=== PATIENT | male | born 1970 | race Caucasian/White ===

== ENCOUNTER 2023-05-30 12:49 | Day surgery (SDC) | payer OTHER, SELFPAY ==
[2023-05-30] VITALS (23 sets, daily range): BP systolic 108–137; BP diastolic 69–93; PULSE 80–96; RESP 14–16; TEMP 36.8–38.1; O2SAT 94–100; BMI 22.9
--- NOTE | 2023-05-30 13:00 | CRLHL7_ITS ---
For Patients: As a result of the Century Cures Act, medical imaging exams and procedure reports are released immediately into your electronic medical record. You may view this report before your referring provider. If you have questions, please contact your health care provider. INDICATION: Right lower quadrant pain.. TECHNIQUE: CT abdomen and pelvis acquired with 80 cc Isovue 370 IV contrast. COMPARISON: None. FINDINGS: Lower chest: Unremarkable. Liver: Subcentimeter hypodensity at the right hepatic as well as the left pedicle adjacent to the gallbladder, too small to characterize. Otherwise, normal attenuation of the liver. No suspicious masses. Gallbladder and bile ducts: Unremarkable. No stones or inflammation. No biliary dilatation. Pancreas: Unremarkable. No mass or inflammation. Spleen: Unremarkable. Normal in size. No masses. Adrenal glands: Unremarkable. No nodules. Kidneys: Unremarkable. No suspicious masses, stones, or hydronephrosis. Right superior pole renal cyst measuring up to 2.3 centimeters in diameter. GI tract: Mild thickening in the distal sigmoid colon, likely reactive. Thickening in the ascending colon and cecum as well as the terminal ileum also likely reactive. Appendicoliths is identified at the base of the appendix measuring approximately 7 millimeters. The appendix is dilated measuring up to 13 millimeters in diameter with peripheral surrounding fat stranding. No focal drainable fluid collections. Adjacent peritoneal thickening and enhancement is noted. No bowel obstruction. Vasculature: Abdominal aorta is normal in caliber. Mesenteric arteries are patent. Lymph nodes: No lymphadenopathy. Peritoneum/Abdominal Wall: Small free fluid within the pelvis, likely reactive. Right lower quadrant fat stranding and trace fluid as well as peritoneal thickening. Pelvis: Bladder and prostate are unremarkable. Bones: Unremarkable for age. IMPRESSION: Acute uncomplicated appendicitis. Appendicolith is noted at the base of the appendix. Please note that all CT scans at this facility use dose modulation, iterative reconstruction, and/or weight-based dosing when appropriate to reduce radiation dose to as low as reasonably achievable. Dictated by Levar Mobley MD @ 05/30/2023 2:49:36 PM (Electronically Signed)
--- NOTE | 2023-05-30 13:05 | ED_ITS ---
HPI - General Adult General Date Seen: 05/30/23 Chief complaint: Abdominal Pain Stated complaint: Lower R side abdominal pain, fever Time Seen by Provider: 05/30/23 12:53 Source: patient Mode of arrival: ambulatory Limitations: no limitations History of Present Illness HPI narrative: Patient is a 53-year-old generally healthy man who presents for evaluation of abdominal pain. He says on Tuesday he was seen in urgent care for abrupt onset of vomiting and diarrhea associated with some central lower abdominal pain. They advised diffuse not feeling better in 24 hours he should be seen again but yesterday he says he was feeling quite a bit better and thought he might be able to go to work today. However, today abdominal pain is worse than his moved to the right lower quadrant and is associated with perceived fever, chills and body aches. The vomiting and diarrhea have resolved, he has not had further nausea today but has not had an appetite. He has been taking activated charcoal as a treatment for possible food poisoning as 6 hours before onset of symptoms he had eaten some fermented pickles that he is making at home. Urine has been dark but no dysuria or obvious hematuria. General health is good, no previous abdominal surgeries. Related Data Home Medications Medication Instructions Recorded Confirmed loratadine 10 mg tablet (Claritin) 10 mg PO DAILY 05/30/23 05/30/23 Allergies Allergy/AdvReac Type Severity Reaction Status Date / Time No Known Drug Allergies Allergy Verified 05/30/23 14:31 Review of Systems Status of ROS: Reports: 10 or more systems reviewed and unremarkable except as noted in History and below [facility] Medical History (Updated 05/30/23 @ 16:13 by Sofía Lechuga MD) Seasonal allergies ?J30.2 - Other seasonal allergic rhinitis (ICD-10) Surgical History (Updated 05/30/23 @ 16:13 by Sofía Lechuga MD) S/P wisdom tooth extraction ?Z98.818 - Other dental procedure status (ICD-10) Social History (Updated 05/30/23 @ 16:12 by Sofía Lechuga MD) Narrative: He does not smoke. he drinks alcohol occasionally. 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 In general, an alert, well-appearing patient. Head: Normocephalic, atraumatic. Eyes: Pupils are equal reactive. Extraocular movements are full. Conjunctivae are normal. ENT: Mucous membranes are moist. Throat is normal. Neck: Supple without lymphadenopathy. Heart: Regular rate and rhythm. No murmur or rub. Lungs: Clear bilaterally. No increased work of breathing, crackles or wheezes. Abdomen: Soft and nondistended. Tenderness in the suprapubic and right lower quadrant. Some voluntary guarding, no rigidity. Remainder the abdomen is nontender. No CVA tenderness. Extremities: Well perfused. No edema. No calf tenderness. Pulses intact. Neurologic: Patient is alert and oriented to person and place. Speech is fluent. Face is symmetric. Moves all extremities equally. Affect: Normal. Skin: Warm and dry. Well perfused. Const: Vital Signs, click to edit/add: Vital Signs - 24 hr 05/30/23 12:54 05/30/23 12:58 05/30/23 12:59 Temperature 100.6 F H Pulse Rate 91 88 Pulse Rate [Pulse Oximeter] 91 Respiratory Rate 16 Blood Pressure 117/79 Blood Pressure [Le ft Upper Arm] 117/79 Pulse Oximetry 99 97 98 Oxygen Delivery Me thod Room Air 05/30/23 13:00 05/30/23 13:01 Temperature Pulse Rate 91 93 Pulse Rate [Pulse Oximeter] Respiratory Rate Blood Pressure 110/74 Blood Pressure [Le ft Upper Arm] Pulse Oximetry 98 98 Oxygen Delivery Me thod Course Course Hospital Course: Patient declines the need for anything for pain right now. Will give a 1000 mL of normal saline IV, CT scan to look for diverticulitis, colitis, appendicitis or other acute non gastroenteritis causes for his symptoms. Labs pending. [place] [address], elevated CRP at 16.7. LFTs are normal, lipase is 32. Urinalysis pending. CT scan of the abdomen by my review showed an appendicolith and dilated appendix as well as inflammatory changes in the right lower quadrant. Final radiology read is as follows:IMPRESSION: Acute uncomplicated appendicitis. Appendicolith is noted at the base of the appendix. Case is discussed with Dr. Lechuga, general surgery. She will review the CT scan and determine a plan. Patient has been hemodynamically stable without further complaints while here in the emergency department. Vital Signs Vital signs: Initial Vital Signs Temperature 100.6 F H 05/30/23 12:54 Temperature Source Temporal Artery Scan 05/30/23 12:54 Pulse Rate 91 05/30/23 12:54 Pulse Rhythm Regular 05/30/23 12:54 Pulse Strength 3+ Normal 05/30/23 12:54 Respiratory Rate 16 05/30/23 12:54 Blood Pressure 117/79 05/30/23 12:54 Blood Pressure Mean 91 05/30/23 12:54 Blood Pressure Position Supine 05/30/23 12:54 Pulse Oximetry 99 05/30/23 12:54 Oxygen Delivery Method Room Air 05/30/23 12:54 Vital Signs Temperature 100.6 F H 05/30/23 12:54 Pulse Rate 91 05/30/23 12:54 Respiratory Rate 16 05/30/23 12:54 Blood Pressure 117/79 05/30/23 12:54 Pulse Oximetry 99 05/30/23 12:54 Oxygen Delivery Method Room Air 05/30/23 12:54 Temperature 100.6 F H 05/30/23 12:54 Pulse Rate 93 05/30/23 13:01 Respiratory Rate 16 05/30/23 12:54 Blood Pressure 110/74 05/30/23 13:01 Pulse Oximetry 98 05/30/23 13:01 Oxygen Delivery Method Room Air 05/30/23 12:54 Medical Decision Making Lab Data Labs: Lab Results 05/30/23 05/30/23 Range/Units 13:01 13:19 WBC 18.57 H (4.50-11.00) K/uL RBC 4.77 (4.30-5.90) m/uL Hgb 15.3 (13.5-17.5) gm/dL Hct 43.1 (37.0-53.0) % MCV 90 (80-100) fL MCH 32 (26-34) pg MCHC 36 (32-36) gm/dL RDW Coeff of Selvin 11.8 (11.5-15.5) % Plt Count 221 (140-440) K/uL Neut % (Auto) 85.6 H (42.0-72.0) % Lymph % (Auto) 4.6 L (20-44) % Tyler % (Auto) 9.4 (0.0-11.0) % Eos % (Auto) 0.1 (0.0-7.0) % Baso % (Auto) 0.1 (0.0-3.0) % Neut # (Auto) 15.90 H (1.7-7.0) K/uL Lymph # (Auto) 0.90 (0.90-2.90) K/uL Tyler # (Auto) 1.70 H (0.00-0.90) K/UL Eos # (Auto) 0.00 (0.00-0.50) K/uL Baso # (Auto) 0.00 (0.00-0.30) K/uL Abs Immat Gran (auto) 0.00 (0.00-0.30) K/uL Imm/Tot Granulo (auto) 0.2 % Sodium 135 (135-149) mmol/L Potassium 3.7 (3.6-5.1) mmol/L Chloride 101 (96-114) mmol/L Carbon Dioxide 26 (20-32) mmol/L BUN 9 (7-30) mg/dL Creatinine 0.6 (0.5-1.5) mg/dL Estimated Creat Clear 153.26 Estimated GFR 117 ml/min Glucose 118 H (60-115) mg/dL Calcium 8.8 (8.4-10.6) mg/dL Total Bilirubin 1.8 H (0.1-1.5) mg/dL Direct Bilirubin 0.1 (0.0-0.5) mg/dL AST 23 (12-35) U/L ALT 27 (4-50) U/L Alkaline Phosphatase 56 (40-150) U/L C-Reactive Protein 16.7 H (0.5-1.0) mg/dL Total Protein 7.1 (6.0-8.3) g/dL Albumin 3.9 (3.3-5.0) g/dL Lipase 32 (23-300) U/L Urine Color Yellow (Yellow) Urine Appearance Slightly Cloudy A (Clear) Urine pH 8.5 (5.0-8.5) Ur Specific [place] 1.015 (1.000-1.030) Urine Protein Negative (Negative) Urine Glucose (UA) Negative (Negative) Urine Ketones 3+ A (Negative) Urine Blood 1+ A (Negative) Urine Nitrite Negative (Negative) Urine Bilirubin Negative (Negative) Urine Urobilinogen 1.0 (0.2-1.0) Ur Leukocyte Esterase Negative (Negative) Urine RBC 2-5 A (0-2) Urine WBC 2-5 (0-5) Ur Squamous Epith Cells Few (None-Few) Urine Bacteria None (None) Discharge Plan Discharge Prescriptions: No Action loratadine [Claritin] 10 mg tablet 10 mg PO DAILY
--- OUTSIDE RECORDS SUMMARY | 2023-05-30 13:15 | XMS_ITS | Patient Health Record ---
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 Name Role Phone Valeriy Gonzales Primary Care Provider Robin Rigginsw Unavailable [phone] ALLERGIES No Known Allergies REASON FOR REFERRAL No Information MEDICATIONS Medication SIG (Take, Route, Frequency, Duration) Notes Start Date End Date Status Ibuprofen 200 MG 4 tab(s) orally prn Not-Taking diphenhydrAMINE HCl 50 MG 1 cap(s) orally at bedtime for insomnia for 30 days 09/04/2019 Not-Taking Naproxen Sodium 220 MG 1 tab bid prn Active Medrol 4 MG as directed, 6 tabs day 1, then reduce by 1 tab daily until gone as directed 01/06/2023 Active Cephalexin 500 MG 1 cap(s) orally 4 times a day 07/01/2017 Not-Taking Triamcinolone Acetonide 0.1 % 1 sung applied topically TID PRN for hemorrhoid flares 07/29/2008 Not-Taking Benadryl Allergy 25 MG 2 cap(s) orally at bedtime for sleep Active Sildenafil Citrate 20 MG 1 tab(s) orally as directed PRN ( order number is [id number] 10/14/2017 Not-Taking predniSONE 20 MG 1 tab(s) orally once a day for 5 days 07/15/2020 Not-Taking traZODone HCl 50 MG 1/2-3 tab(s) orally at bedtime for insomnia for 30 day(s) 09/04/2019 Not-Taking Cialis 10 MG 1 tab(s) orally once weekly adcirca generic is fine 01/22/2019 Not-Taking Melatonin 3 MG 1 cap(s) orally once a day (at bedtime) Active Claritin 10 MG 1 tab(s) orally prn Active Cialis 20 MG 1 tab(s) orally once a day for ( tadalafil ) order # [id number] 10/17/2017 Not-Taking SOCIAL HISTORY Tobacco Use: Social History Observation Description Date Details (start date - stop date) Former Smoker NA - NA Sex Assigned At : Social History Observation Description Sex Assigned At Unknown Tobacco Status Question Answer Notes I am: former smoker How long has it been since you last smoked? > 10 years PROBLEMS Problem Type ICD Code Onset Dates Problem Status W/U Status Risk SNOMED Code Notes Problem Erectile dysfunction, unspecified erectile dysfunction type (N52.9) Active confirmed 557099747 Problem Insomnia, unspecified type (G47.00) Active confirmed 651073889 Encounters Encounter Location Date Provider Diagnosis [facility] [address] [place], [place] [id number] 01/06/2023 Ryder Riggins Low back pain at multiple sites M54.50 ASSESSMENTS Encounter Date Diagnosis Assessment Notes Treatment Notes Treatment Clinical Notes 01/06/2023 Low back pain at multiple sites (ICD-10 - M54.50) Etiology discussed. Treatment options and anticipated course reviewed. Stretching exercises given. Role of pain medication and physical rehabilitation reviewed. Warned to call back if worsens or not improved. Pt will start with home exercises, will consider PT versus referral to [facility]. Discussed the utility of imaging will not image at this time in favor of conservative treatments., Low Back Pain: Exercises material was printed PLAN OF TREATMENT No Information Insurance Providers Payer Name Payer Address Payer Phone Subscriber Number Group Number Insured Name Patient Relationship to Insured Coverage Start Date Coverage End Date [employer] [address] [facility] VALERIA Rubio [phone] [id number] Mehdi Gaitan Self - patient is the insured 1 Deevn Ferrara [address] [place] [address] [id number] Mehdi Gaitan Self - patient is the insured 6 MEDICAL (GENERAL) HISTORY Medical History History ICD Code Occipital neuritis Surgical History Surgery Date(Month/Year) [place] tooth extractions 1989 Hospitalization History Reason Date(Month/Year)
[2023-05-30 13:25] LABS: Basophils Percent Auto 0.1 % (0.0-3.0); Eosinophils Percent Auto 0.1 % (0.0-7.0); Hematocrit 43.1 % (37.0-53.0); Hemoglobin* 15.3 gm/dL (13.5-17.5); Immature Granulocytes Pct Auto 0.2 %; Lymphocytes Percent Auto 4.6 % (20-44); Mean Corpuscular HGB Conc 36 gm/dL (32-36); Mean Corpuscular Hemoglobin 32 pg (26-34); Mean Corpuscular Volume 90 fL (80-100); Monocytes Percent Auto 9.4 % (0.0-11.0); Neutrophils Percent Auto 85.6 % (42.0-72.0); Platelet Count* 221 K/uL (140-440); RDW Coefficient of Variation % 11.8 % (11.5-15.5); Red Blood Count 4.77 m/uL (4.30-5.90); White Blood Count* 18.57 K/uL (4.50-11.00)
[2023-05-30 13:35] LABS: Slide Review Reflex No
[2023-05-30 13:38] LABS: Albumin* 3.9 g/dL (3.3-5.0); Chloride* 101 mmol/L (96-114)
[2023-05-30 13:39] LABS: Potassium* 3.7 mmol/L (3.6-5.1); Sodium* 135 mmol/L (135-149)
[2023-05-30 13:41] LABS: Creatinine* 0.6 mg/dL (0.5-1.5); Est. Creatinine Clearance* 153.26; Estimated Glomerular Filt Rate 117 ml/min
[2023-05-30 13:42] LABS: Alanine Aminotransferase* 27 U/L (4-50); Alkaline Phosphatase* 56 U/L (40-150); Aspartate Amino Transferase* 23 U/L (12-35); Bilirubin Direct* 0.1 mg/dL (0.0-0.5); Bilirubin Total* 1.8 mg/dL (0.1-1.5); Blood Urea Nitrogen* 9 mg/dL (7-30); Calcium* 8.8 mg/dL (8.4-10.6); Carbon Dioxide* 26 mmol/L (20-32); Glucose* 118 mg/dL (60-115); Lipase* 32 U/L (23-300); Total Protein* 7.1 g/dL (6.0-8.3)
[2023-05-30 13:56] LABS: C Reactive Protein* 16.7 mg/dL (0.5-1.0)
[2023-05-30 15:19] LABS: Appearance Urine Slightly Cloudy (Clear); Bilirubin Urine Negative (Negative); Blood Urine 1+ (Negative); Color Urine Yellow (Yellow); Glucose Urine Negative (Negative); Ketones Urine 3+ (Negative); Leukocyte Esterase Urine Negative (Negative); Nitrite Urine Negative (Negative); Protein Urine Negative (Negative); Specific Gravity Urine 1.015 (1.000-1.030); pH Urine 8.5 (5.0-8.5)
--- NOTE | 2023-05-30 15:40 | PM.GSHP ---
History of Present Illness History of Present Illness Date Seen: 05/30/23 Chief complaint: Lower R side abdominal pain, fever Narrative: Mehdi Gaitan is a 53 year old male Who presented to the emergency department today with several days of abdominal pain. He states that 11:00 p.m. on Tuesday he went to the bathroom to have a bowel movement and unexpectedly had diarrhea with this he had nausea. Overnight he vomited 7 times. The pain was so severe that he could not sleep. The pain at that time was located across his lower abdomen. He went to urgent care the next day. They did some labs but could not check a CT scan and encouraged him to go to the emergency department though since he thought it was food poisoning, he did not do so. Yesterday he felt better in the evening and went to bed however this morning when he woke up it was progressively worse and he could not go into work. He came in to be seen. He has had a low-grade fever of up to 99 though he has had a temperature of 100.6? in the emergency department. He last ate this morning. He had blueberries. Nothing necessarily makes the pain worse or better though he feels as though sleeping helps. He has never had anything like this before. He has never had a colonoscopy or any other colon cancer screening modality. He has no chest pain or shortness of breath [facility] Medical History (Updated 05/30/23 @ 16:13 by Sofía Lechuga MD) Seasonal allergies ?J30.2 - Other seasonal allergic rhinitis (ICD-10) Surgical History (Updated 05/30/23 @ 16:13 by Sofía Lechuga MD) S/P wisdom tooth extraction ?Z98.818 - Other dental procedure status (ICD-10) Social History (Updated 05/30/23 @ 16:12 by Sofía Lechuga MD) Narrative: He does not smoke. he drinks alcohol occasionally. 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 Smoking Status: Never smoker Do you use any of these nicotine containing products: None Second hand tobacco smoke exposure: No How often do you have a drink containing alcohol: 2-3 times a week AUDIT-C Alcohol total score: 3 Non-prescribed substance use: denies use service: No Meds Home Medications and Allergies Home Medications Medication Instructions Recorded Confirmed Type loratadine 10 mg tablet (Claritin) 10 mg PO DAILY 05/30/23 05/30/23 History Allergies Allergy/AdvReac Type Severity Reaction Status Date / Time No Known Drug Allergies Allergy Verified 05/30/23 14:31 Exam Narrative: Exam Narrative: General appearance: Alert, cooperative, and in no distress Eyes: PERRLA, eye lids clear, and sclera white HENT Head: Normocephalic Ears: External ears normal Pulmonary: Clear to auscultation bilaterally Cardiovascular Heart: Regular rate and rhythm Extremities: warm and well perfused Gastrointestinal Abdominal: No scars. No hernias. Abdomen is soft. He has a fullness on the right. No guarding. Mild tenderness with palpation on the right but he does have rebound. Musculoskeletal: Extremities: Upper: Both upper extremities have normal joint range of motion and intact strength. Lower: Both lower extremities have normal joint range of motion and intact strength. Skin: Normal skin color, texture, and turgor. Neurologic: No focal deficits Psychiatric: Alert, oriented, cooperative, normal affect. Const: Vital Signs, click to edit/add: Vital Signs - 24 hr 05/30/23 12:54 05/30/23 12:58 05/30/23 12:59 Temperature 100.6 F H Pulse Rate 91 88 Pulse Rate [Pulse Oximeter] 91 Respiratory Rate 16 Blood Pressure 117/79 Blood Pressure [Le ft Upper Arm] 117/79 Pulse Oximetry 99 97 98 Oxygen Delivery Me thod Room Air 05/30/23 13:00 05/30/23 13:01 Temperature Pulse Rate 91 93 Pulse Rate [Pulse Oximeter] Respiratory Rate Blood Pressure 110/74 Blood Pressure [Le ft Upper Arm] Pulse Oximetry 98 98 Oxygen Delivery Me thod Results Results Labs: White blood cell count is 18. Total bili is 1.8 though direct bilirubin is normal. CRP is 16. Electrolytes within normal limits. Abdomen CT scan report/results: report reviewed and image reviewed Additional studies: CT scan of the abdomen pelvis done today: INDICATION: Right lower quadrant pain.. TECHNIQUE: CT abdomen and pelvis acquired with 80 cc Isovue 370 IV contrast. COMPARISON: None. FINDINGS: Lower chest: Unremarkable. Liver: Subcentimeter hypodensity at the right hepatic as well as the left pedicle adjacent to the gallbladder, too small to characterize. Otherwise, normal attenuation of the liver. No suspicious masses. Gallbladder and bile ducts: Unremarkable. No stones or inflammation. No biliary dilatation. Pancreas: Unremarkable. No mass or inflammation. Spleen: Unremarkable. Normal in size. No masses. Adrenal glands: Unremarkable. No nodules. Kidneys: Unremarkable. No suspicious masses, stones, or hydronephrosis. Right superior pole renal cyst measuring up to 2.3 centimeters in diameter. GI tract: Mild thickening in the distal sigmoid colon, likely reactive. Thickening in the ascending colon and cecum as well as the terminal ileum also likely reactive. Appendicoliths is identified at the base of the appendix measuring approximately 7 millimeters. The appendix is dilated measuring up to 13 millimeters in diameter with peripheral surrounding fat stranding. No focal drainable fluid collections. Adjacent peritoneal thickening and enhancement is noted. No bowel obstruction. Vasculature: Abdominal aorta is normal in caliber. Mesenteric arteries are patent. Lymph nodes: No lymphadenopathy. Peritoneum/Abdominal Wall: Small free fluid within the pelvis, likely reactive. Right lower quadrant fat stranding and trace fluid as well as peritoneal thickening. Pelvis: Bladder and prostate are unremarkable. Bones: Unremarkable for age. IMPRESSION: Acute uncomplicated appendicitis. Appendicolith is noted at the base of the appendix. Please note that all CT scans at this facility use dose modulation, iterative reconstruction, and/or weight-based dosing when appropriate to reduce radiation dose to as low as reasonably achievable. Dictated by Levar Mobley MD @ 05/30/2023 2:49:36 PM Assessment and Plan Assessment and plan (1) Acute appendicitis: Status: Acute Plan We discussed that appendectomy is the preferred treatment for this. This can most often be done laparoscopically. We discussed risks and benefits of the procedure including but not limited to bleeding, need for conversion to open, risk of injury to other structures, need for possible bowel resection, and abscess formation. The patient understands that the risk of abscess is higher if the appendix is perforated. For that reason, we generally keep patient is in the hospital on IV antibiotics until vital signs and white blood cell count had normalized. We also discussed recovery including 2 weeks of lifting restrictions.
[2023-05-30 15:46] LABS: Squamous Epithelial Cell Urine Few (None-Few)
[2023-05-30] MEDS: LACTATED RINGERS 1000 ML 1,000 ML 100 ML IV ×2 (16:18→20:29)
[2023-05-30] MEDS: PIPERACILLIN/TAZOBACTAM 3.375 GM INJ IVPB (16:25)
[2023-05-30] MEDS: BUPIVACAINE 0.25% 30 ML INJECTION (16:46)
--- NOTE | 2023-05-30 18:06 | P.ANES_ITS ---
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
--- NOTE | 2023-05-30 18:15 | PM.GSPRC ---
Operative Note Pre-op diagnosis: Acute appendicitis Post-op diagnosis: Acute appendicitis with perforation Type of Procedure: Laparoscopic appendectomy Indications: The patient is a 53-year-old male who presented to the emergency department with 3 days of lower abdominal pain and fevers. He initially thought this was related to food poisoning however when his symptoms worsened yesterday he decided to come into the emergency department. Workup revealed a white blood cell count of [address] showing appendicitis with inflammation of the sigmoid, cecum and terminal ileum. I recommended appendectomy and he agreed to proceed. Procedure Description: After discussing the risks and benefits of the procedure, the patient signed informed consent.? The operative site was marked and the patient was brought to the operating room and placed on the operating table in supine position.? Care was taken to pad the patient's pressure points.?? The patient was then intubated by anesthesia.?? The operative site was then prepped and draped in the usual sterile fashion.? A time-out was then performed. Entrance to the abdomen was obtained via a 5 mm optical trocar in the left upper quadrant. The abdomen was insufflated and briefly surveyed for any signs of injury. There were none. A 12 mm port was placed inferior to the umbilicus as well as a 5 mm port in the left lower quadrant. Both were done under direct vision. The patient was then placed in Trendelenburg position with the right side up. The small bowel was noted to be adherent to the right lower abdominal wall. Using gentle blunt dissection, I was able to dissect this down from the pelvic wall and there was a large amount of feculent fluid noted. Quickly I suctioned this from the abdomen before it could spill further. Small chunks of fecal material were removed from the abdomen. The terminal ileum and cecum were noted to be quite inflamed, however, by retracting the ileal fat pad I was able to view the appendix. This was noted to be necrotic. This was densely adherent to the retroperitoneum. Carefully I teased the appendix away from the alysha sigmoid fat to which it was adherent in the pelvis and was able to pull this upward. Using LigaSure, I divided the mesoappendix. The portion of the appendix where the perforation was was densely adherent to the retroperitoneum. I was able to visualize the appendiceal base. I created a mesenteric window using a Saritha dissector. Through this I passed a purple load Endo-LOGAN stapler. Because of the location of the perforation, I wanted to ensure that I stapled down on the cecum. To facilitate this, I removed the stapler and used a scissor to dissect the lateral peritoneal attachments of the cecum. Once this was done I was able to pass the stapler through the mesenteric window and divided the appendix just proximal on the cecum. The staple line was inspected for bleeding. There was none. I then was able to use the Harmonic to divide the remaining mesoappendix attaching appendix to the retroperitoneum with care to stay on the appendix itself. I then removed the appendix from the abdomen using an Endo-Catch bag. I examined the area where the appendix had been. There was a small amount of bleeding that had occurred during the procedure, however this was suctioned and there was no further bleeding noted. A small amount of clear fluid was present in the pelvis. This was suctioned as well. I examined the abdomen to ensure there was no further purulence or fecal material. There was none. Because of the perforation of enteric contents I elected to place a drain in the appendiceal bed. A 5 mm port was placed in the right lower quadrant under direct vision. Through this a 19 Yoruba Justus channel drain was passed. This was placed along the appendiceal bed and with its tip in the pelvis. This was then sutured in place. The ports were then removed and the abdomen was desufflated. The umbilical port site fascia was closed with 0 Vicryl. The skin was then closed with absorbable subcuticular suture. A small amount of oozing from the skin around the drain site was noted. I did not want to use cautery for fear of damaging the drain. The bleeding was controlled with a [id number] stitch using Monocryl and a piece of Surgicel was place around the drain. Sterile dressings were then applied. Instrument sponge and needle counts were correct at the end of the case. The patient was then woken and transported to the PACU in stable condition. ? The patient tolerated the procedure well. Findings: Gangrenous appendicitis with walled-off perforation. Anesthesia: GETA Surgeon: Sofía Lechuga MD Estimated blood loss (mL): 15 Specimen: Appendix Condition: stable Disposition: PACU
[2023-05-30] MEDS: LACTATED RINGERS 1000 ML 1,000 ML 35 ML IV (18:24)
--- NOTE | 2023-05-30 19:33 | PC.NURSE ---
up to floor at 1830, at bedside, patient alert and oriented x4, denies N/V and rates pain at 2/10. Patient has bilateral SCD's, CATHI drain is patent. 3 lap sites covered in steri strips. VSS, patient on RA and tolerating fluids. LS clear, ice pack to op site.
[2023-05-30] MEDS: HYDROmorphone 0.5 mg/0.5 ml inj IVP (20:28)
[2023-05-30] MEDS: HYDROCODONE-ACETAMIN 5-325 MG 1 TAB PO (22:08)
[2023-05-30] MEDS: PIPERACILLIN/TAZOBACTAM 3.375 GM in 0.9 % SODIUM CHLORIDE Mini-bag 100 ML IVPB (23:17)
[2023-05-31] VITALS: BP 112/69; PULSE 80; RESP 16; TEMP 37.2; O2SAT 96
[2023-05-31] MEDS: HYDROmorphone 0.5 mg/0.5 ml inj IVP ×4 (00:14→10:38)
[2023-05-31 02:00] VITALS: BP 112/69; PULSE 84; RESP 16; TEMP 36.3; O2SAT 96
[2023-05-31] MEDS: LACTATED RINGERS 1000 ML 1,000 ML 100 ML IV (04:34)
[2023-05-31] MEDS: PIPERACILLIN/TAZOBACTAM 3.375 GM in 0.9 % SODIUM CHLORIDE Mini-bag 100 ML IVPB (04:38)
[2023-05-31 07:00] VITALS: BP 116/76; PULSE 64; RESP 16; TEMP 36.7; O2SAT 99
[2023-05-31 07:02] LABS: Basophils Percent Auto 0.1 % (0.0-3.0); Hemoglobin* 13.3 gm/dL (13.5-17.5); Immature Granulocytes Pct Auto 0.3 %; Lymphocytes Percent Auto 5.3 % (20-44); Mean Corpuscular HGB Conc 35 gm/dL (32-36); Mean Corpuscular Hemoglobin 33 pg (26-34); Mean Corpuscular Volume 93 fL (80-100); Neutrophils Percent Auto 85.3 % (42.0-72.0); Platelet Count* 232 K/uL (140-440); RDW Coefficient of Variation % 11.9 % (11.5-15.5); Red Blood Count 4.09 m/uL (4.30-5.90); White Blood Count* 14.67 K/uL (4.50-11.00)
--- NOTE | 2023-05-31 07:12 | PC.NURSE ---
Shift note: Pt has been well tonight. Complained of intermittent pain which was managed with PRN medications as ordered. Pt had hyperactive bowel sound, asked to walk around and confirmed he passed gas 3x and that reduced the pain level. Alert and oriented. Tolerated regular diet very well without any abdominal symptoms. Pt's sleep was interrupted with intermittent pain. Vitally stable.
[2023-05-31 07:23] LABS: Chloride* 103 mmol/L (96-114); Sodium* 136 mmol/L (135-149)
[2023-05-31 07:24] LABS: Potassium* 4.3 mmol/L (3.6-5.1)
[2023-05-31 07:25] LABS: Slide Review Reflex No
[2023-05-31 07:26] LABS: Carbon Dioxide* 31 mmol/L (20-32); Creatinine* 0.7 mg/dL (0.5-1.5); Est. Creatinine Clearance* 131.36; Estimated Glomerular Filt Rate 112 ml/min
[2023-05-31 07:27] LABS: Blood Urea Nitrogen* 11 mg/dL (7-30); Calcium* 8.2 mg/dL (8.4-10.6); Glucose* 138 mg/dL (60-115)
[2023-05-31] MEDS: ERTAPENEM 1 GM in 0.9 % SODIUM CHLORIDE Mini-bag 100 ML IVPB (10:36)
--- NOTE | 2023-05-31 12:50 | PM.GSPN ---
Subjective Subjective Date Seen: 05/31/23 Interval history: Mehdi is doing well this morning. He states his pain is fairly well controlled. At most it is a 4/10. Not passing gas. No nausea. Would like to advance his diet. He would like to go home. Exam Narrative: Exam Narrative: General: No acute distress CV: Regular rate and rhythm Respiratory: Clear to auscultation bilaterally Abdomen: Incisions are clean and dry without erythema. Abdomen is appropriately tender for the postoperative state. CATHI drain with 200 mL of mildly cloudy serosanguineous drainage. Const: Vital Signs, click to edit/add: Vital Signs - 24 hr 05/30/23 12:54 05/30/23 12:58 05/30/23 12:59 Temperature 100.6 F H Pulse Rate 91 88 Pulse Rate [Pulse Oximeter] 91 Pulse Rate [Right Pulse Oximeter] Respiratory Rate 16 Blood Pressure 117/79 Blood Pressure [Le ft Arm] Blood Pressure [Le ft Upper Arm] 117/79 Pulse Oximetry 99 97 98 Oxygen Delivery [facility] Room Air 05/30/23 13:00 05/30/23 13:01 05/30/23 17:55 Temperature 99.6 F Pulse Rate 91 93 96 Pulse Rate [Pulse Oximeter] Pulse Rate [Right Pulse Oximeter] Respiratory Rate 14 Blood Pressure 110/74 123/74 Blood Pressure [Le ft Arm] Blood Pressure [Le ft Upper Arm] Pulse Oximetry 98 98 98 Oxygen Delivery [facility] Room Air 05/30/23 18:00 05/30/23 18:05 05/30/23 18:10 Temperature Pulse Rate 93 92 96 Pulse Rate [Pulse Oximeter] Pulse Rate [Right Pulse Oximeter] Respiratory Rate 16 14 16 Blood Pressure 124/70 126/77 124/76 Blood Pressure [Le ft Arm] Blood Pressure [Le ft Upper Arm] Pulse Oximetry 95 96 96 Oxygen Delivery [facility] 05/30/23 18:15 05/30/23 18:20 05/30/23 18:25 Temperature 99.7 F H Pulse Rate 90 88 87 Pulse Rate [Pulse Oximeter] Pulse Rate [Right Pulse Oximeter] Respiratory Rate 16 15 16 Blood Pressure 133/79 126/76 124/78 Blood Pressure [Le ft Arm] Blood Pressure [Le ft Upper Arm] Pulse Oximetry 96 95 94 Oxygen Delivery [facility] 05/30/23 18:41 05/30/23 18:45 05/30/23 18:45 Temperature 98.2 F 98.8 F 98.2 F Pulse Rate 85 Pulse Rate [Pulse Oximeter] Pulse Rate [Right Pulse Oximeter] 81 81 Respiratory Rate 16 16 16 Blood Pressure Blood Pressure [Le ft Arm] 127/83 124/79 122/81 Blood Pressure [Le ft Upper Arm] Pulse Oximetry 96 96 Oxygen Delivery [facility] Room Air Room Air Room Air 05/30/23 19:00 05/30/23 19:15 05/30/23 19:30 Temperature 98.2 F 98.6 F 98.6 F Pulse Rate Pulse Rate [Pulse Oximeter] Pulse Rate [Right Pulse Oximeter] 81 82 82 Respiratory Rate 16 16 16 Blood Pressure Blood Pressure [Le ft Arm] 127/83 137/79 108/93 H Blood Pressure [Le ft Upper Arm] Pulse Oximetry 96 98 97 [facility] 05/30/23 20:00 05/30/23 20:30 05/30/23 21:00 Temperature 98.2 F 98.2 F 98.6 F Pulse Rate Pulse Rate [Pulse Oximeter] Pulse Rate [Right Pulse Oximeter] 80 89 86 Respiratory Rate 16 16 16 Blood Pressure Blood Pressure [Le ft Arm] 132/87 132/77 134/86 Blood Pressure [Le ft Upper Arm] Pulse Oximetry 97 100 98 [facility] Room Air 05/30/23 22:00 05/30/23 22:41 05/30/23 23:00 Temperature 99 F 99 F 98.9 F Pulse Rate Pulse Rate [Pulse Oximeter] Pulse Rate [Right Pulse Oximeter] 90 83 83 Respiratory Rate 16 16 16 Blood Pressure Blood Pressure [Le ft Arm] 122/70 122/70 117/69 Blood Pressure [Le ft Upper Arm] Pulse Oximetry 98 98 97 Oxygen Delivery [facility] Room Air Room Air Room Air 05/31/23 00:00 05/31/23 02:00 05/31/23 07:00 Temperature 98.9 F 97.3 F L Pulse Rate Pulse Rate [Pulse Oximeter] Pulse Rate [Right Pulse Oximeter] 80 84 64 Respiratory Rate 16 16 16 Blood Pressure Blood Pressure [Le ft Arm] 112/69 112/69 Blood Pressure [Le ft Upper Arm] Pulse Oximetry 96 96 Oxygen Delivery [facility] Room Air Room Air 05/31/23 07:00 Temperature 98.0 F Pulse Rate Pulse Rate [Pulse Oximeter] Pulse Rate [Right Pulse Oximeter] 64 Respiratory Rate 16 Blood Pressure Blood Pressure [Le ft Arm] 116/76 Blood Pressure [Le ft Upper Arm] Pulse Oximetry 99 Oxygen Delivery [facility] Room Air Labs/Imaging Labs Labs: White blood cell count today is down to 14 from 18. Progress Note: A&P Assessment and plan (1) Acute appendicitis: Status: Acute (2) S/P laparoscopic appendectomy: Status: Acute Plan The patient is a 53-year-old male who is postop day 1 status post laparoscopic appendectomy for perforated appendicitis. He had a fairly moderate-sized cavity of feculent drainage so a drain was left at the time of surgery. He also had a fair amount of inflammation of the cecum, terminal ileum and sigmoid which was all reactive in nature. He has been afebrile and is anxious to discharge home. - My plan will be to give him a dose of ertapenem which has 24 hour dosing and advanced him to a soft diet. We discussed that he should continue with a bland/soft diet until his pain resolves. He may have an ileus. The most important thing is that he remains hydrated. If he does well then we can consider discharge home later today though I plan to leave the drain in place. We discussed that he will have to follow-up with persistent nausea vomiting, worsening pain or fevers. I will plan on seeing him next week for drain removal. He will discharge home on oral antibiotics which he may start tomorrow morning. Will re-evaluate later today
[2023-05-31] MEDS: OxyCODONE/APAP 5-325 TABLET 1 TAB PO (14:18)
--- NOTE | 2023-05-31 15:36 | PC.NURSE ---
Patient alert and oriented x4. pleasant and cooperative. Patient tolerating a soft reg diet. Rated pain 3/10 PRN meds administered w/relief. see eMAR. CATHI drain patent. IV in right forearm SL. Patient ambulating in room and hallway to help pass gas and make his bloating resolve. Patient was able to participate in Draining CATHI drain and was comfortable doing it.
--- NOTE | 2023-05-31 17:09 | PM.DS1 ---
DS: Providers Provider Date Seen: 05/31/23 Primary care physician: Not a Local Provider Attending Physician on discharge: Sofía Lechuga MD DS: Diagnosis Discharge Diagnosis (1) Acute appendicitis: Status: Acute Problem details: with perforation (2) S/P laparoscopic appendectomy: Status: Acute DS: Summary Hospital Course Hospital Course: The patient was admitted to the hospital on 05/30/2023 after undergoing laparoscopic appendectomy for perforated appendicitis. Postoperatively he was afebrile and his white blood cell count improved the following morning. The patient was adamant that he be discharged though concern was expressed that he may have an ileus and is at risk for developing an abscess. He was able to tolerate a soft diet without difficulty. He had good pain control on p.o. meds and again was afebrile. He was deemed safe for discharge home with his drain. He was given a dose of ertapenem own prior to discharge and will plan to start oral antibiotics the following day. He is going to return next week for drain removal. Time Spent with Patient Time attestation: Total time spent providing and/or coordinating discharge services: Exam Narrative: Exam Narrative: Please see exam from my progress note dated 06/20/2023. Const: Vital Signs, click to edit/add: Vital Signs - 24 hr 05/30/23 17:55 05/30/23 18:00 05/30/23 18:05 Temperature 99.6 F Pulse Rate 96 93 92 Pulse Rate [Right Pulse Oximeter] Respiratory Rate 14 16 14 Blood Pressure 123/74 124/70 126/77 Blood Pressure [Le ft Arm] Pulse Oximetry 98 95 96 Oxygen Delivery [facility] Room Air 05/30/23 18:10 05/30/23 18:15 05/30/23 18:20 Temperature Pulse Rate 96 90 88 Pulse Rate [Right Pulse Oximeter] Respiratory Rate 16 16 15 Blood Pressure 124/76 133/79 126/76 Blood Pressure [Le ft Arm] Pulse Oximetry 96 96 95 Oxygen Delivery Me [facility] 05/30/23 18:25 05/30/23 18:41 05/30/23 18:45 Temperature 99.7 F H 98.2 F 98.8 F Pulse Rate 87 85 Pulse Rate [Right Pulse Oximeter] 81 Respiratory Rate 16 16 16 Blood Pressure 124/78 Blood Pressure [Le ft Arm] 127/83 124/79 Pulse Oximetry 94 96 Oxygen Delivery [facility] Room Air Room Air 05/30/23 18:45 05/30/23 19:00 05/30/23 19:15 Temperature 98.2 F 98.2 F 98.6 F Pulse Rate Pulse Rate [Right Pulse Oximeter] 81 81 82 Respiratory Rate 16 16 16 Blood Pressure Blood Pressure [Le ft Arm] 122/81 127/83 137/79 Pulse Oximetry 96 96 98 Oxygen Delivery Me [facility]od Room Air Room Air Room Air 05/30/23 19:30 05/30/23 20:00 05/30/23 20:30 Temperature 98.6 F 98.2 F 98.2 F Pulse Rate Pulse Rate [Right Pulse Oximeter] 82 80 89 Respiratory Rate 16 16 16 Blood Pressure Blood Pressure [Le ft Arm] 108/93 H 132/87 132/77 Pulse Oximetry 97 97 100 Oxygen Delivery Me od Room Air Room Air Room Air 05/30/23 21:00 05/30/23 22:00 05/30/23 22:41 Temperature 98.6 F 99 F 99 F Pulse Rate Pulse Rate [Right Pulse Oximeter] 86 90 83 Respiratory Rate 16 16 16 Blood Pressure Blood Pressure [Le ft Arm] 134/86 122/70 122/70 Pulse Oximetry 98 98 98 Oxygen Delivery Me od Room Air Room Air Room Air 05/30/23 23:00 05/31/23 00:00 05/31/23 02:00 Temperature 98.9 F 98.9 F 97.3 F L Pulse Rate Pulse Rate [Right Pulse Oximeter] 83 80 84 Respiratory Rate 16 16 16 Blood Pressure Blood Pressure [Le ft Arm] 117/69 112/69 112/69 Pulse Oximetry 97 96 96 Oxygen Delivery Me od Room Air Room Air Room Air 05/31/23 07:00 05/31/23 07:00 Temperature 98.0 F Pulse Rate Pulse Rate [Right Pulse Oximeter] 64 64 Respiratory Rate 16 16 Blood Pressure Blood Pressure [Le ft Arm] 116/76 Pulse Oximetry 99 Oxygen Delivery Me od Room Air DS: Data Data Completed and Pending Labs on day of discharge: Labs from last 24 hours 05/31/23 06:20 WBC 14.67 H RBC 4.09 L Hgb 13.3 L Hct 38.0 MCV 93 MCH 33 MCHC 35 RDW Coeff of Selvin 11.9 Plt Count 232 Neut % (Auto) 85.3 H Lymph % (Auto) 5.3 L [place] % (Auto) 9.0 Eos % (Auto) 0.0 Baso % (Auto) 0.1 Neut # (Auto) 12.50 H Lymph # (Auto) 0.80 L [place] # (Auto) 1.30 H Eos # (Auto) 0.00 Baso # (Auto) 0.00 Abs Immat Gran (auto) 0.00 Imm/Tot Granulo (auto) 0.3 Sodium 136 Potassium 4.3 Chloride 103 Carbon Dioxide 31 BUN 11 Creatinine 0.7 Estimated Creat Clear 131.36 Estimated GFR 112 Glucose 138 H Calcium 8.2 L Discharge Plan Discharge Disposition: Home, Self-Care Discharging Surgeon: Sofía Lechuga Follow-Up Appointment: 1 week [facility] Prescriptions: New oxycodone-acetaminophen 5-325 mg Tablet 1 tab PO Q4H PRNQty: 20 0RF amoxicillin-pot clavulanate 875-125 mg tablet 1 tab PO BID Qty: 14 0RF Rx Instructions: Start taking this medication on 06/01/23 Continued loratadine [Claritin] 10 mg tablet 10 mg PO DAILY PRN Activity Level: No strenuous activity Discharge Diet: Regular Diet Detail: [place] diet Patient Instructions: Oxycodone/Acetaminophen (By mouth), Surgical Site Infections (DC), Laparoscopic Appendectomy (DC), Post-Operative Instructions: Appendectomy Additional Instructions: Wound care: Your sutures are under the skin and will dissolve over time. Leave steri strips (white bandages) over incisions until they fall off (or remove after 7 days). OK to shower tomorrow but avoid bathing, soaking or swimming for 2 weeks. Pat the incisions dry. No need to wash or scrub the area. Apply ice to the area as needed for swelling. It is also OK to use a heating pad if this provides more comfort to you. Drain care: Empty and record drain output daily. Change gauze daily. Bring drain output with you to your appointment with Dr. Lechuga. Okay to shower, however cover drain site with Saran wrap Pain control: You were prescribed a pain medication. This medication contains acetaminophen (Tylenol). If you are taking your prescribed pain pills 4 times daily, do not take additional acetaminophen. As your pain improves, you can try taking acetaminophen instead of the prescribed pain pill. It is ok to take Ibuprofen or Naproxen (per directions on packaging). This medication helps with inflammation and swelling. Take an [id number] stool softener while you are taking prescribed pain medications to help alleviate constipation. I recommend Senna and/or Colace. Take as directed on package. If you have not had a bowel movement in 3 days, try taking Miralax as directed on the package. All of these are available over the counter. Follow-up Follow up with Dr. Lechuga next week Please call if you are experiencing severe pain, nausea, vomiting, difficulty urinating, fever or have not had bowel movement in 4 days after surgery. Forms: Work/School Release Follow-up: Sofía Lechuga MD [Staff Physician] - 06/08/23 10:30 am ([facility]) Discharge Orders: Discharge Order (Routine); Ordered 05/31/23 Ordered By: Sofía Lechuga
== END 2023-05-31 16:23 | disposition home or self-care (01) ==
LOC: ED 15:12 → SS 16:18 → MEDSURG 18:40
PROVIDERS: Emergency Provider Emergency Medicine; Visit Provider Surgery
PROC: 0DTJ4ZZ Resection of Appendix, Percutaneous Endoscopic Approach (ICD-10-PCS; CPT 44970; principal; 2023-05-30 15:45)
DX: K35.32 Acute appendicitis with perforation, localized peritonitis, and gangrene, without abscess (principal)
CPT/HCPCS: 44970; 00840; 36415; 74177; 80048; 80076; 81001; 83690; 85025; 86140; 88304; 99140; 99284; 99285; A9270; J0330; J0665; J1100; J1170; J1335; J1885; J2405; J2543; J2704; J3010; J3490; J7120; Q9967

== ENCOUNTER 2024-02-18 11:33 | Emergency (ER) | payer OTHER, SELFPAY ==
[2024-02-18 11:36] VITALS: BP 132/78; PULSE 84; RESP 18; TEMP 36.9; O2SAT 97; BMI 23.7
--- OUTSIDE RECORDS SUMMARY | 2024-02-18 12:21 | XMS_ITS | Clinical Summary ---
Author Name Unknown Organization [facility] Address [place], [place] [address] Care Team Providers Care Retail Merchandising Coordinator Name Role Phone Pcp, No Primary Care Provider Unavailabl e Allergies No known active allergies Medications Medication Sig Dispensed Refills Start Date End Date Status ondansetron (ZOFRAN ODT) 4 mg disintegrating tabletIndications:Nause a and vomiting, unspecified vomiting type Place 1 Tablet (4 mg) on the tongue every 8 hours if needed for Nausea/Vomiting . 12 Tablet 05/28/2023 Active ibuprofen (ADVIL; MOTRIN) 200 mg cap 4 tab(s) orally prn Active Active Problems No known active problems Encounters Date Type Department Care Team Description 01/23/2024 12:40 PM CDT Ancillary Procedure [facility] [id number] [place] [id number] 01/23/2024 11:30 AM CDT Office Visit [facility] [address] [phone] Eliza Tee PA [facility] 01/23/2024 Travel from Last 3 Months Social History Tobacco Use Types Packs/Day Years Used Date Smoking Tobacco: Never Smokeless Tobacco: Never Tobacco Cessation:Counseling Given: Not Answered Sex and Gender Information Value Date Recorded Sex Assigned at Not on file Gender Identity Not on file Sexual Orientation Not on file Obstetrics History Last Filed Vital Signs Vital Sign Reading Time Taken Comments Blood Pressure 130/81 01/23/2024 11:51 AM CDT Pulse 64 01/23/2024 11:51 AM CDT Temperature 36.9 ??C (98.4 ??F) 01/23/2024 11:55 AM C DT Respiratory Rate 16 01/23/2024 11:51 AM CDT Oxygen Saturation 99% 01/23/2024 11:51 AM CDT Inhaled Oxygen Concentration - - Weight 78 kg (172 lb) 01/23/2024 11:51 AM CDT Height 180.3 cm (5' 11) 05/28/2023 8:46 AM CDT Body Mass Index 23.99 05/28/2023 8:46 AM CDT Plan of Treatment Health Maintenance Due Date Last Done Comments Tdap 01/27/1983 Depression screening for age 12+ 1984 HIV for age 15-65 01/27/1987 Hepatitis C screening for ag e 18-79 01/27/1990 Tetanus booster 1992 Colonoscopy through age 75 01/27/2017 Lipids for age 45-75 01/27/2017 Zoster (shingles) series for age 50+ (1 of 2) 01/27/2022 COVID-19 vaccine series ( - 2022- season) 2023 BMI (ht and wt on same day) for age 18+ 05/28/2024 05/28/2023 Influenza for age 50-64 07/01/2024 Pneumococcal series for age 6-64 Aged Out No longer eligible based on patient's age to complete this topic Procedures Procedure Name Priority Date/Time Associated Diagnosis Comments XR FINGER 3 VIEWS RIGHT STAT 01/23/2024 1:09 PM CDT Pain of right thumb from Last 3 Months Results * XR FINGER 3 VIEWS RIGHT (01/23/2024 1:09 PM CDT) Anatomical Region Laterality Modality Finger Computed Radiogr aphy 01/23/2024 1:09 PM CDT Impressions 01/23/2024 1:12 PM CDT Normal joint spaces and alignment. No fracture. Minimal degenerative change at the first IP joint. Narrative 01/23/2024 1:12 PM CDT For Patients: As a result of the Century Cures Act, medical imaging exams and procedure reports are released immediately into your electronic medical record. You may view this report before your referring provider. If you have questions, please contact your health care provider. EXAM: XR FINGER 3 VIEWS RIGHT [facility] DATE: 01/23/2024 INDICATION: Pain Of Right Thumb COMPARISON: None. Procedure Note Franklin Moreau MD - 01/23/2024 For Patients: As a result of the Cures Act, medical imagingexams and procedure reports are released immediately into your electronicmedical record. You may view this report before your referring provider.If you have questions, please contact your health care provider. EXAM: XR FINGER 3 VIEWS RIGHT LOCATION: [facility] DATE: 01/23/2024 INDICATION: Pain Of Right Thumb COMPARISON: None. IMPRESSION: Normal joint spaces and alignment. No fracture. Minimal degenerativechange at the first IP joint. Eliza [facility] from Last 3 Months Care Teams Retail Merchandising Coordinator Relationship Specialty Start Date End Date Pcp, No . PCP - General 05/28/23
--- NOTE | 2024-02-18 12:33 | ED.GENADULT ---
HPI - General Adult General Chief complaint: Unspecified Complaint, Adult Stated complaint: difficulty swallowing Time Seen by Provider: 02/18/24 11:53 History of Present Illness HPI narrative: This 54-year-old male comes in reporting difficulty swallowing and feeling like something was stuck in his lower esophagus. He states that he ate a croissant that was somewhat dry and he had difficulty passing anything for a while. Now he is able to swallow his saliva and at the time of my initial visit he was able to take sips of fluids without any emesis. He states that he has been having some symptoms like this for the past 8 years on and off. Additionally his father last week from a soffit Ronald cancer so he has increased concern about his own swallowing. Related Data Home Medications Medication Instructions Recorded Confirmed No Known Home Medications 02/18/24 02/18/24 Allergies Allergy/AdvReac Type Severity Reaction Status Date / Time No Known Drug Allergies Allergy Verified 06/03/23 09:42 Review of Systems Status of ROS: Reports: 10 or more systems reviewed and unremarkable except as noted in History and below Narrative: Constitutional: No fevers, no weight gain or loss. Eyes: No discharge. No vision changes. HENT: No congestion, no sore throat, no ear pain. Cardiovascular: No chest pain, no palpitations. Respiratory: No shortness of breath, no wheezes, no cough. Gastrointestinal: No abdominal pain, no vomiting, no diarrhea. Swallowing difficulty as described above. Genitourinary: No dysuria, no hematuria. Musculoskeletal: Normal range of motion. Skin: No rashes, no pruritis. Neurological: No dizziness, weakness, sensory change, speech change. Endo/Heme/Allergies: No bruising or bleeding. No polydipsia. Pysch: no suicidality, no anxiety, no insomnia. All other systems reviewed and are negative. [facility] Medical History (Updated 02/18/24 @ 12:38 by Alton Graves MD) Seasonal allergies ?J30.2 - Other seasonal allergic rhinitis (ICD-10) Surgical History (Updated 05/31/23 @ 18:20 by Sofía Lechuga MD) S/P laparoscopic appendectomy ?Z90.49 - Acquired absence of other specified parts of digestive tract (ICD-10) S/P wisdom tooth extraction ?Z98.818 - Other dental procedure status (ICD-10) Social History (Updated 05/30/23 @ 16:12 by Sofía Lechuga MD) Narrative: He does not smoke. he drinks alcohol occasionally. 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 HEENT: Normocephalic, atraumatic. Neck: Normal range of motion. Nontender. Supple. Heart: Regular. No murmurs. Normal rate. Intact distal pulses. Lungs: Clear to auscultation. No chest discomfort. No wheezes, rhonchi, or rales. Abdomen: Normal bowel sounds. Nontender. No rebound tenderness. The patient was able to take fluids orally without any symptoms. Genitalia: Deferred. Back: No midline tenderness. Normal range of motion. Extremities: Normal range of motion. No injury. Skin: Intact. No rash. Warm. No erythema or pallor. Neurologic: No altered sensation. No weakness. Alert and oriented. Psychiatric: No suicidality. No anxiety or depression. No insomnia. Nursing notes and vitals signs are reviewed. Const: Vital Signs, click to edit/add: Vital Signs - 24 hr 02/18/24 11:36 Temperature 98.5 F Pulse Rate [Pulse Oximeter] 84 Respiratory Rate 18 Blood Pressure [Ri ght Upper Arm] 132/78 Pulse Oximetry 97 Oxygen Delivery Me thod Room Air Course Vital Signs Vital signs: Initial Vital Signs Temperature 98.5 F 02/18/24 11:36 Temperature Source Temporal Artery Scan 02/18/24 11:36 Pulse Rate 84 02/18/24 11:36 Respiratory Rate 18 02/18/24 11:36 Blood Pressure 132/78 02/18/24 11:36 Blood Pressure Mean 96 02/18/24 11:36 Blood Pressure Position Sitting 02/18/24 11:36 Pulse Oximetry 97 02/18/24 11:36 Oxygen Delivery Method Room Air 02/18/24 11:36 Vital Signs Temperature 98.5 F 02/18/24 11:36 Pulse Rate 84 02/18/24 11:36 Respiratory Rate 18 02/18/24 11:36 Blood Pressure 132/78 02/18/24 11:36 Pulse Oximetry 97 02/18/24 11:36 Oxygen Delivery Method Room Air 02/18/24 11:36 Temperature 98.5 F 02/18/24 11:36 Pulse Rate 84 02/18/24 11:36 Respiratory Rate 18 02/18/24 11:36 Blood Pressure 132/78 02/18/24 11:36 Pulse Oximetry 97 02/18/24 11:36 Oxygen Delivery Method Room Air 02/18/24 11:36 Medical Decision Making MDM Narrative Medical decision making narrative: This patient comes in reporting difficulty swallowing but is able to swallow and is not 1 that needs emergent upper GI scope at this time. I did recommend this study for him both to diagnose or rule out any abnormality in his esophagus and potentially treat with a dilation if needed. He is agreeable to this plan and I did place an order for an EGD to occur possibly next week. He is not having any symptoms currently and has normal vital signs. He is okay to be discharged home. Discharge Plan Discharge Clinical Impression: Esophageal stricture Patient Disposition: Home, Self-Care Condition: Improved Additional Instructions: An order was placed for an upper GI scope with a request that it can be done on February 23, if possible. You should receive a phone call regarding this and if not call [phone]. Return if symptoms are recurrent or worsening. Prescriptions: No Action No Known Home Medications Follow Up/Referrals: Provider,Not a Local [Primary Care Provider] - Stand Alone Forms: Sentiment Info Instructions
== END 2024-02-18 12:51 | disposition home or self-care (01) ==
PROVIDERS: Emergency Provider Emergency Medicine Emergency Medical Services
DX: K22.2 Esophageal obstruction (principal)
CPT/HCPCS: 99282; 99283; 99284

== ENCOUNTER 2024-02-24 09:44 | Outpatient (CLI) | payer OTHER, SELFPAY ==
--- OUTSIDE RECORDS SUMMARY | 2024-02-24 09:48 | XMS_ITS | Clinical Summary ---
Author Name Unknown Organization [facility] Address [place], [place] [address] Care Team Providers Care Special Effects Designer Name Role Phone Pcp, No Primary Care [...] Description 01/23/2024 12:40 PM CDT Ancillary Procedure [facility] [id number] [place] [id number] 01/23/2024 11:30 AM CDT Office Visit [facility] [address] [phone] Eliza Tee PA [facility] 01/23/2024 Travel from Last 3 [...] EXAM: XR FINGER 3 VIEWS RIGHT LOCATION: [facility] DATE: 01/23/2024 INDICATION: Pain [...] EXAM: XR FINGER 3 VIEWS RIGHT LOCATION: [facility] DATE: 01/23/2024 INDICATION: Pain Of Right Thumb COMPARISON: None. IMPRESSION: Normal joint spaces and alignment. No fracture. Minimal degenerativechange at the first IP joint. [facility] from Last 3 Months Care Teams Special Effects Designer Relationship Specialty Start Date End Date Pcp, No . PCP - General 05/28/23
--- OUTSIDE RECORDS SUMMARY | 2024-02-24 09:48 | XMS_ITS | Patient Health Record ---
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 Name Role Phone Valeriy Gonzales Primary Care Provider ALLERGIES No Known Allergies REASON FOR REFERRAL [...] as directed PRN ( order number is [id number] 10/14/2017 Not-Taking predniSONE 20 MG 1 tab(s) [...] day for ( tadalafil ) order # [id number] 10/17/2017 Not-Taking IMMUNIZATIONS Vaccine Route Administration Date Status Comme nts Td (7 yrs and Older) Unknown 04/13/1999 Administered Tdap (Adacel 11-64 yrs) IM Intramuscular 06/13/2005 Admini stered Tdap (Adacel 11-64 yrs) IM Intramuscular 10/13/2011 Admini stered SOCIAL HISTORY Tobacco Use: Social History Observation [...] unspecified erectile dysfunction type (N52.9) Active confirmed [id number] Problem Insomnia, unspecified type (G47.00) Active confirmed [id number] PLAN OF TREATMENT No Information Insurance Providers Payer Name Payer Address Payer Phone Subscriber Number Group Number Insured Name Patient Relationship to Insured Coverage Start Date Coverage End Date [facility] [employer] [address] VALER[place] CASTRO [phone] [id number] Mehdi Gaitan Self - patient is the insured 1 Deven Ferrara [address] [place] [address] [id number] Mehdi Gaitan Self - patient is the insured 6 MEDICATIONS ADMINISTERED Medication Instructions Date of Administration Dosage Notes Bicillin 900/300 CR up to 1,200,000 02/17/2006 Rocephin (Ceftriaxone) 07/01/2017 1 g MEDICAL (GENERAL) HISTORY Medical History History ICD Code Occipital neuritis Surgical History Surgery Date(Month/Year) [place] tooth extractions 1989 Hospitalization History Reason Date(Month/Year)
--- NOTE | 2024-02-24 11:09 | W.ANESCHARGE ---
Anesthesia Charges Start Date/Time Anesthesia Start Date: 02/24/24 Anesthesia Start Time: 10:52 Stop Date/Time Anesthesia Stop Date: 02/24/24 Anesthesia Stop Time: 11:09
--- NOTE | 2024-02-24 11:09 | W.ANESCHARGE ---
Anesthesia Charges Start Date/Time Anesthesia Start Date: 02/24/24 Anesthesia Start Time: 10:52 Stop Date/Time Anesthesia Stop Date: 02/24/24 Anesthesia Stop Time: 11:09
== END 2024-02-24 09:45 | disposition home or self-care (01) ==
LOC: OP CLINIC 09:47
PROVIDERS: Visit Provider Internal Medicine
DX: R13.10 Dysphagia, unspecified (principal)
CPT/HCPCS: 00731; 43239; 88305; J2704; J3490